=== PATIENT | female | born 1945 | race Caucasian/White ===

== ENCOUNTER → 2017-11-12 | Outpatient (CLI) | payer OTHER | LOC: FIMAGING 09:23 | PROVIDERS: ATTEND Internal Medicine | DX: Z12.31 Encounter for screening mammogram for malignant neoplasm of breast (principal) | CPT/HCPCS: G0202 ==

== ENCOUNTER → 2018-08-15 | Outpatient (CLI) | payer OTHER | LOC: CIMAGING 13:25 | PROVIDERS: ATTEND Internal Medicine | DX: M25.552 Pain in left hip (principal) | CPT/HCPCS: 73502-PO ==

== ENCOUNTER → 2018-09-04 | Outpatient (CLI) | payer OTHER | LOC: FIMAGING 09:34 | PROVIDERS: ATTEND Orthopaedic Surgery | DX: M16.12 Unilateral primary osteoarthritis, left hip (principal) ==

== ENCOUNTER → 2018-11-14 | Outpatient (CLI) | payer OTHER | LOC: FIMAGING 10:03 | PROVIDERS: ATTEND Internal Medicine | DX: Z12.31 Encounter for screening mammogram for malignant neoplasm of breast (principal) ==